=== PATIENT | female | born 1945 | race Caucasian/White ===

== ENCOUNTER 2016-09-30 10:08 | Inpatient (IN) | payer OTHER, MEDICARE ==
[~2016-09-30] VITALS: Ht 157.5 cm; Wt 88.0 kg
--- NOTE | 2016-10-01 10:21 | MH ---
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 ADMISSION HISTORY AND PHYSICAL This pleasant 71-year female is being admitted today for revision of a left total knee arthroplasty for loosening. OTHER PAST HISTORY 1. The patient had a left knee done 17 years ago. 2. The patient has a history of breast cancer in the past. 3. Hypertension CURRENT MEDICATIONS Include: 1. Losartan 2. Atorvastatin 3. Vitamins 4. Calcium SOCIAL HISTORY She does not smoke. She does drink some alcohol. PAST SURGICAL HISTORY Include: 1. Tonsillectomy and adenoidectomy 2. Total knee arthroplasties, left one done 17 years ago and Right one done 15 years ago. REVIEW OF SYSTEMS Noncontributory FAMILY HISTORY Noncontributory ALLERGIES SHE HAS AN ALLERGY TO CODEINE. PHYSICAL EXAMINATION We find a 71-year-old female well-developed, well-nourished oriented x3 complaining of pain in her left knee. VITAL SIGNS: Blood pressure 138/82, pulse 81 regular, respirations 20, temperature 98.2, pulse oximetry 96% on room air. HEENT: Eyes PERRL, EOMI. Ears, nose, mouth clear. NECK: Supple. LUNGS: Clear. HEART: Regular rate. ABDOMEN: Soft. Positive bowel sounds, nontender. EXTREMITIES: Reveals the left knee be tender with 3+ varus-valgus instability. She is neurovascularly to her toes. IMPRESSION At this time, failed left total knee arthroplasty. PLAN Revision left total knee arthroplasty today. The patient given a prescription for postoperative pain, anticoagulation control in the office and plans on going home after surgery. MD NTAHAN Gonzalez/ELIO /10:06 AM /10:15 AM
[2016-10-01] MEDS ORDERED: VITA100L BUCCAL (13:44)
[2016-10-01] MEDS ORDERED: CHOL5000 PO (13:44)
[2016-10-01] MEDS ORDERED: ASPI325T PO (13:44)
[2016-10-01] MEDS ORDERED: LOSA100T2 PO (13:44)
[2016-10-01] MEDS ORDERED: ACET-703 PO (13:44)
[2016-10-01] MEDS ORDERED: ATOR40TA16 PO (13:44)
[2016-10-01] MEDS ORDERED: CALCTAB33 PO (13:44)
[2016-10-02] MEDS ORDERED: SODIUM CHLORID 0.9% 500 ML IV SCH (06:15)
[2016-10-02] MEDS ORDERED: INSULIN HUMAN REGULAR 1,000 UNITS/10 ML VIAL SQ PRN (06:15)
[2016-10-02] MEDS ORDERED: LACTATED RINGER'S 1000 ML IV SCH (06:15)
[2016-10-02] MEDS ORDERED: METOPROLOL TARTRATE 25 MG TAB PO PRN (06:15)
[2016-10-02 06:36] VITALS: BP 147/71; PULSE 94; RESP 18; TEMP 98; O2SAT 98
[2016-10-02] MEDS ORDERED: ceFAZolin 2 GM PREMIX 50 ML ONE (06:51)
[2016-10-02] MEDS ORDERED: VANCOMYCIN HCL 1000 MG VIAL ONE (06:51)
[2016-10-02] MEDS ORDERED: MIDAZOLAM HCL 2 MG/2 ML VIAL ONE (07:10)
[2016-10-02] MEDS ORDERED: APREPITANT 40 MG CAP ONE (07:10)
[2016-10-02] MEDS ORDERED: FAMOTIDINE 20 MG/2 ML VIAL ONE (07:10)
[2016-10-02] MEDS ORDERED: CHLORHEXIDINE GLUCONATE 4% SOLN 120 ML BTL TOP SCH (08:00)
[2016-10-02] MEDS ORDERED: TRANEXAMIC ACID INJ 710 MG in SODIUM CHLORIDE 0.9% INJ 100 ML IV SCH ×2 (08:00→11:00)
[2016-10-02] MEDS ORDERED: BUPIVACAINE HCL PF 0.5% 30 ML VIAL NB ONE (08:07)
[2016-10-02] MEDS ORDERED: DEXAMETHASONE SOD PHOS PF 10 MG/ML VIAL IV ONE (08:07)
[2016-10-02] MEDS ORDERED: TRANEXAMIC ACID INJ 0 MG in SODIUM CHLORIDE 0.9% INJ 100 ML IV SCH (08:30)
[2016-10-02] MEDS ORDERED: diphenhydrAMINE HCL 50 MG/ML VIAL IV PRN (08:30)
[2016-10-02] MEDS ORDERED: ACETAMINOPHEN 325 MG TAB PO PRN (08:30)
[2016-10-02] MEDS ORDERED: oxyCODONE/ACETAMINOPHEN 5 MG/325 MG TAB PO PRN (08:30)
[2016-10-02] MEDS ORDERED: NALOXONE HCL 0.4 MG/ML AMP IV PRN (08:30)
[2016-10-02] MEDS ORDERED: ONDANSETRON HCL 4 MG/2 ML VIAL IVP PRN (08:30)
[2016-10-02] MEDS ORDERED: SODIUM CHLORIDE 0.9% FLUSH 5 ML FLUSH IVF PRN (08:30)
[2016-10-02] MEDS ORDERED: TEMAZEPAM 15 MG CAP PO PRN (08:30)
[2016-10-02] MEDS ORDERED: ceFAZolin INJ 1,000 MG VIAL TOP ONE (08:49)
[2016-10-02] MEDS: CYANOCOBALAMIN 100 MCG TAB PO SCH (09:00)
[2016-10-02] MEDS: SODIUM CHLORIDE 0.9% FLUSH 5 ML FLUSH IVF SCH ×2 (09:00→20:26)
[2016-10-02] MEDS: LOSARTAN 50 MG TAB PO SCH (09:00)
[2016-10-02] MEDS: CHOLECALCIFEROL (VIT D3) 5000 UNIT CAP PO SCH (09:00)
[2016-10-02] MEDS ORDERED: NON-FORMULARY DRUG (Losartan-Hydrochlorothiazide 1 TAB) PO SCH (09:00)
[2016-10-02] MEDS ORDERED: MORPHINE SULFATE 30 MG/30 ML PCA IV SCH (09:00)
[2016-10-02] MEDS: HYDROCHLOROTHIAZIDE 25 MG TAB PO SCH (09:00)
[2016-10-02] MEDS: CALCIUM/VITAMIN D 250 MG/125 U TAB PO SCH (09:00)
[2016-10-02] MEDS: TOBRAMYCIN SULFATE 1200 MG VIAL ONE ×3 (09:09→09:28)
[2016-10-02] MEDS ORDERED: TOBRAMYCIN SULFATE 1200 MG VIAL OTHER ONE (09:28)
[2016-10-02] MEDS ORDERED: fentaNYL CITRATE 250 MCG/5 ML AMP ONE (10:51)
[2016-10-02] MEDS ORDERED: DO NOT ADM ANY ANTICOAGULANT DRUGS XX PRN (11:00)
[2016-10-02] MEDS ORDERED: Post-op Orders (for Pharmacy) MISC XX ONE (11:00)
--- NOTE | 2016-10-02 11:19 | HHI.FF ---
Face to Face Verification Diagnosis: (1) Status post revision of total replacement of left knee Physical Therapy Gait training Knee: Total knee, Protocol: Left, Full weight bearing Canvas Knee Splint: When in bed & 2 pillows btw thighs Nursing RN: 3 days/week x 2 weeks Nursing: Danielle teaching, Dressing changes Dressing Changes: Daily dressing change, 4x4s, Gauze, Paper tape I have seen patient Gela Porter on 10/02/16. My clinical findings support the need for the requested home health care services because: Limited ability to care for self High risk of falls I certify that my clinical findings support that this patient is homebound because: Unsteady gait/balance Glory Carlin MD Oct 02, 2016 11:19
[2016-10-02] MEDS ORDERED: WALKER WHEELS/F1 MIS (11:21)
[2016-10-02] MEDS ORDERED: MISC-163 (11:21)
[2016-10-02] MEDS ORDERED: CPMMACHINE (11:21)
[2016-10-02] MEDS: LACTATED RINGER'S 1000 ML INJ 1,000 ML IV SCH ×2 (11:30→21:30)
--- NOTE | 2016-10-02 11:44 | RADRPT ---
EXAM DATE/TIME: 10/02/2016 11:04 [facility] COMPARISON: No previous studies available for comparison. INDICATIONS : Post op left knee replacement. MEDICAL HISTORY : None. SURGICAL HISTORY : None. ENCOUNTER: Initial ACUITY: 1 day PAIN SCORE: Non-responsive. LOCATION: Left knee. FINDINGS: AP and lateral views of the left knee demonstrate changes consistent with recent total knee arthropla sty with metallic hardware in place in the distal femur and proximal tibia. There is a radiolucent pa tellar component. There is soft tissue gas present, as expected. CONCLUSION: Expected findings are present following left total knee arthroplasty. Geronimo Ashley MD on October 02, 2016 at 11:42 Board Certified Radiologist. This report was verified electronically.
[2016-10-02] MEDS ORDERED: SODIUM CHLOR 0.9% 250 ML INJ 250 ML IV ONE (12:00)
[2016-10-02] MEDS ORDERED: ePHEDrine/NS 25 MG/5 ML SYR IV ONE (12:00)
[2016-10-02] MEDS ORDERED: ONDANSETRON HCL 4 MG/2 ML VIAL IV PUSH ONE (12:00)
[2016-10-02] MEDS ORDERED: LACTATED RINGER'S 1000 ML INJ 1,000 ML IV ONE (12:00)
[2016-10-02] MEDS ORDERED: PROPOFOL 200 MG/20 ML AMP IV ONE ×2 (12:00→13:08)
[2016-10-02 12:30] VITALS: BP 138/74; PULSE 92; RESP 17; TEMP 95.4; O2SAT 94
[2016-10-02] MEDS: PCA - TOTAL MG MORPHINE DELIVERED PER SHIFT SCH ×2 (14:00→20:26)
[2016-10-02 16:00] VITALS: BP 122/70; PULSE 81; RESP 16; TEMP 97.5; O2SAT 98
--- NOTE | 2016-10-02 16:11 | EKG ---
Date Performed: 10/02/2016 Time Performed: 06:37:30 PTAGE: 71 years EKG: Sinus rhythm POSSIBLE LEFT ATRIAL ENLARGEMENT POSSIBLE RIGHT VENTRICULAR CONDUCTION DELAY BORDERLINE ECG NO PREVIOUS TRACING DOCTOR: Archie Redd Interpretating Date/Time 10/02/2016 16:10:09
[2016-10-02 16:20] VITALS: O2SAT 98
[2016-10-02 20:00] VITALS: BP 128/65; PULSE 88; RESP 16; TEMP 96.4; O2SAT 99
[2016-10-02 20:17] VITALS: O2SAT 97
[2016-10-02] MEDS: ATORVASTATIN 40 MG TAB PO SCH (20:26)
[2016-10-03] VITALS (7 sets, daily range): BP systolic 111–158; BP diastolic 58–86; PULSE 77–81; RESP 16–17; TEMP 95.6–96.6; O2SAT 95–100
[2016-10-03] MEDS: PCA - TOTAL MG MORPHINE DELIVERED PER SHIFT SCH (05:02)
[2016-10-03 05:44] LABS: HEMATOCRIT 34.2 % (35.0-46.0); REVIEW FLAG FINAL
[2016-10-03] MEDS: SODIUM CHLORIDE 0.9% FLUSH 5 ML FLUSH IVF SCH ×2 (09:00→19:38)
[2016-10-03] MEDS: CHOLECALCIFEROL (VIT D3) 5000 UNIT CAP PO SCH (09:00)
--- NOTE | 2016-10-03 09:11 | PD.ORT.PN ---
Subjective Subjective Remarks pt fairly comfortable. No complaints today. Objective Vitals Vital Signs Date Time Temp Pulse Resp B/P Pulse Ox O2 Delivery O2 Flow Rate FiO2 10/03/16 05:02 16 10/03/16 04:00 96.6 77 16 123/70 100 10/03/16 00:00 96.5 78 16 122/66 97 10/02/16 20:26 16 10/02/16 20:17 97 10/02/16 20:00 96.4 88 16 128/65 99 10/02/16 16:20 98 21 10/02/16 16:00 97.5 81 16 122/70 98 10/02/16 14:00 16 10/02/16 12:30 95.4 92 17 138/74 94 10/02/16 11:45 88 18 131/71 99 Room Air 10/02/16 11:32 16 10/02/16 11:30 80 18 116/67 99 Room Air 10/02/16 11:15 85 18 124/69 98 Room Air 10/02/16 11:00 91 18 109/59 98 Room Air 10/02/16 10:44 98.2 93 18 100/50 98 Nasal Cannula 3 I/O 10/02/16 10/02/16 10/02/16 10/03/16 10/03/16 10/03/16 07:00 15:00 23:00 07:00 15:00 23:00 Intake Total 1840 ml 240 ml 240 ml Output Total 100 ml Balance 1740 ml 240 ml 240 ml Intake Oral 390 ml 240 ml 240 ml IV Total 100 ml Other 1350 ml Output Urine Total 0 ml Estimated Blood Loss 100 ml Other 0 ml # Voids 1 0 1 1 # Bowel Movements 0 0 0 Result Diagram: 10/03/16 0525 Objective Remarks Dressing dry and intact. Sitting up in chair. No calf tenderness. Assessment & Plan Ortho Post Op Day #: 1 Problem List: Assessment and Plan Cont OOB with PT and daily wound care. 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 Home tomorrow if comfortable and afebrile. Glory Carlin MD Oct 03, 2016 09:11
[2016-10-03] MEDS: LACTATED RINGER'S 1000 ML INJ 1,000 ML IV SCH ×2 (10:00→22:30)
[2016-10-03] MEDS: CALCIUM/VITAMIN D 250 MG/125 U TAB PO SCH (10:09)
[2016-10-03] MEDS: oxyCODONE/ACETAMINOPHEN 5 MG/325 MG TAB PO PRN ×4 (10:09→22:01)
[2016-10-03] MEDS: HYDROCHLOROTHIAZIDE 25 MG TAB PO SCH (10:10)
[2016-10-03] MEDS: CYANOCOBALAMIN 100 MCG TAB PO SCH (10:10)
[2016-10-03] MEDS: LOSARTAN 50 MG TAB PO SCH (10:10)
[2016-10-03] MEDS: ENOXAPARIN SODIUM 30 MG/0.3 ML SYRINGE SQ SCH ×2 (10:11→22:01)
[2016-10-03] MEDS: MULTIVITAMINS/MINERALS THERAPEUTIC TAB PO SCH (19:37)
[2016-10-03] MEDS: ATORVASTATIN 40 MG TAB PO SCH (19:37)
[2016-10-03] MEDS: DOCUSATE SODIUM 100 MG CAP PO SCH (19:37)
[2016-10-03] MEDS: MAGNESIUM HYDROXIDE SUSP 30 ML CUP PO PRN (22:01)
[2016-10-03] MEDS ORDERED: MORPHINE SULFATE 4 MG/ML INJ IV PRN (23:45)
[2016-10-04 00:02] VITALS: BP 140/71; PULSE 81; RESP 17; TEMP 96.7; O2SAT 99
[2016-10-04] MEDS: oxyCODONE/ACETAMINOPHEN 5 MG/325 MG TAB PO PRN ×3 (06:08→12:51)
[2016-10-04 06:38] LABS: HEMATOCRIT 33.5 % (35.0-46.0); REVIEW FLAG FINAL
[2016-10-04 08:00] VITALS: BP 127/66; PULSE 95; RESP 24; TEMP 96.8; O2SAT 96
[2016-10-04] MEDS ORDERED: POLYETHYLENE GLYCOL 17 GM PKG PO SCH (09:00)
[2016-10-04] MEDS: CHOLECALCIFEROL (VIT D3) 5000 UNIT CAP PO SCH (09:00)
[2016-10-04] MEDS: LOSARTAN 50 MG TAB PO SCH (09:03)
[2016-10-04] MEDS: MAGNESIUM HYDROXIDE SUSP 30 ML CUP PO PRN (09:03)
[2016-10-04] MEDS: ENOXAPARIN SODIUM 30 MG/0.3 ML SYRINGE SQ SCH (09:03)
[2016-10-04] MEDS: MULTIVITAMINS/MINERALS THERAPEUTIC TAB PO SCH (09:04)
[2016-10-04] MEDS: CALCIUM/VITAMIN D 250 MG/125 U TAB PO SCH (09:04)
[2016-10-04] MEDS: DOCUSATE SODIUM 100 MG CAP PO SCH (09:04)
[2016-10-04] MEDS: CYANOCOBALAMIN 100 MCG TAB PO SCH (09:04)
[2016-10-04] MEDS: HYDROCHLOROTHIAZIDE 25 MG TAB PO SCH (09:04)
[2016-10-04] MEDS: SODIUM CHLORIDE 0.9% FLUSH 5 ML FLUSH IVF SCH (09:06)
--- NOTE | 2016-10-04 09:32 | PD.ORT.PN ---
Subjective Subjective Remarks pt fairly comfortable. No complaints today. She had pain yesterday after class. Objective Vitals Vital Signs Date Time Temp Pulse Resp B/P Pulse Ox O2 Delivery O2 Flow Rate FiO2 10/04/16 08:00 96.8 95 24 127/66 96 10/04/16 00:02 96.7 81 17 140/71 99 10/03/16 20:00 95.9 79 17 158/86 97 10/03/16 18:35 96 21 10/03/16 16:00 95.6 77 17 117/58 96 10/03/16 11:19 96.5 78 16 111/58 95 I/O 10/03/16 10/03/16 10/03/16 10/04/16 10/04/16 10/04/16 07:00 15:00 23:00 07:00 15:00 23:00 Intake Total 240 ml 1200 ml 720 ml 360 ml Balance 240 ml 1200 ml 720 ml 360 ml Intake Oral 240 ml 1200 ml 720 ml 360 ml # Voids 1 0 2 2 # Bowel Movements 0 0 0 Result Diagram: 10/04/16 0532 Objective Remarks Dressing dry and intact. Sitting up in chair. No calf tenderness. Assessment & Plan Ortho Post Op Day #: 2 Problem List: Assessment and Plan Cont OOB with PT and daily wound care. Home today. Glory Carlin MD Oct 04, 2016 09:32
--- NOTE | 2016-10-04 09:36 | HHI.DS ---
Discharge Summary Admission Date Oct 02, 2016 at 05:50 Discharge Date: Oct 04, 2016 Admitting Diagnosis failed left total knee arthroplasty Diagnosis: (1) Status post revision of total replacement of left knee Diagnosis: Principal Brief History This is a 71 year old female patient CBC/BMP: 10/04/16 0532 Significant Findings Laboratory Tests Test 10/03/16 10/04/16 05:25 05:32 Hematocrit 34.2 % 33.5 % (35.0-46.0) (35.0-46.0) PE at Discharge Dressing dry and intact. Sitting up in chair. No calf tenderness. Hospital Course This patient was admitted on 10/02/16 with a failed left total knee arthroplasty. On day of admission the patient underwent a revision total knee arthroplasty including the tibial insert and the patella. Patient was then started on a round of prophylactic antibiotics and 23 hours later started on anticoagulation therapy. She continued to improve with physical therapy out of bed CPM machine and daily wound care. She progressed well with therapy and was tolerating by mouth pain meds by postoperative day #1. She was discharged on the second postoperative day ambulating well with her walker. She was discharged with instructions for home healthcare physical therapy daily wound care and anticoagulation therapy. She has a follow-up scheduled in the office as well. Pt Condition on Discharge: Good Discharge Disposition: Disch w/ Home Health Serv Discharge Instructions Diet Instructions: As Tolerated, No Restrictions Activities You Can Perform: Full Weight Bearing, Shower Only-No Bath Activities to Avoid: Bathing, Driving Glory Carlin MD Oct 04, 2016 09:36
[2016-10-04] MEDS ORDERED: BACITRACIN OINT 0.9 GM PKT TOP PRN (10:15)
[2016-10-04 10:58] VITALS: O2SAT 95
--- NOTE | 2016-10-08 00:04 | MP ---
cc: Parker TURNER. DATE OF SURGERY: 10/02/2016 PREOPERATIVE DIAGNOSIS: Failed left total knee arthroplasty. POSTOPERATIVE DIAGNOSIS Failed left total knee arthroplasty. SURGERY PERFORM Left total knee revision arthroplasty including the tibial insert and the patella, left knee. SURGEON Dr. Turner PROBATE CLERK: ELICEO Rehman Medical student: Rehana Butterfiled, third year, [employer]. ANESTHESIA: Spinal and block. PROCEDURE: Patient brought to the operating room, placed on the operating table in supine position. After successful induction of spinal anesthesia, the patient's left knee, thigh and leg were prepped and draped in the usual manner. Tourniquet inflated left upper thigh and sent to 300 mmHg pressure after exsanguination of the left lower extremity. Anterior medial parapatellar incision was then made through the old incision 8 inches in length, carried down through the subcutaneous tissue through the medial retinaculum to expose the knee joint. Serous fluid was removed, sent to the lab for STAT Gram stain, culture and sensitivity. Gram stain revealing few white cells, no bacteria seen, and the knee was then debrided of metallosis and few synovium, and the fragments of the patella plastic and the tibial insert were noted all around the knee joint and this was debrided. The remains of the patella was then resected using the oscillating saw down through normal bone and a size 31, three peg patella was then used by using the drill for the three peg holes and a trial 31 patella inserted, found to tract smoothly with no instability. The knee was then flexed and the remains of the tibial insert removed. Attempts were made to loosen the femoral metal and femoral tibial components and these were found to be quite stable and no loosening noted and these were left. The wound was then irrigated copiously and debrided of nonviable tissue. A new 31 millimeter patella was then cemented into place with one batch of antibiotic infused cobalt blue cement. When the cement hardened, the tourniquet was deflated. Tourniquet time less than one hour, at 300 mmHg pressure. Meticulous hemostasis achieved. A size 12 new tibial insert was then selected, found to tract smoothly after trial. The actual component was then inserted into place and clipped into place with the clip. Full range of motion of the knee was then appreciated with no instability. The wound was then irrigated copiously with antibiotic solution and the deep fascia approximated with running #2 Quill. The subcutaneous tissue was approximated using interrupted running 2-0 and 3-0 Monocryl suture. Steri-Strips, sterile dressing, knee immobilizer applied. No drain utilized. ESTIMATED BLOOD LOSS: 100 cc. Sponge and suture count correct. The patient tolerated the procedure well and left the operating room in satisfactory condition. J. MD NATHAN Beltrán/HENNY /11:16 AM /11:52 PM
== END 2016-10-04 12:57 | disposition home health service (06) | DRG 465 ==
LOC: HSDI 10-02 05:50 → N06B 10-02 12:33
PROVIDERS: ADMIT Surgery; ATTEND Surgery
PROC: 0SPD09Z Removal of Liner from Left Knee Joint, Open Approach (ICD-10-PCS; 2016-10-02)
PROC: 0SUW09Z Supplement Left Knee Joint, Tibial Surface with Liner, Open Approach (ICD-10-PCS; 2016-10-02)
PROC: 0SUD09C Supplement Left Knee Joint with Liner, Patellar Surface, Open Approach (ICD-10-PCS; 2016-10-02)
PROC: 0SPD0JC Removal of Synthetic Substitute from Left Knee Joint, Patellar Surface, Open Approach (ICD-10-PCS; principal; 2016-10-02 08:03)
DX: T84.093A Other mechanical complication of internal left knee prosthesis, initial encounter (principal); I10 Essential (primary) hypertension; Y79.2 Prosthetic and other implants, materials and accessory orthopedic devices associated with adverse incidents; Z85.3 Personal history of malignant neoplasm of breast
CPT/HCPCS: 73560; 85014; 85018; 86850; 86900; 86901; 87015; 87070; 87102; 87116; 87205; 87206; 93005; 94150; C1776; J0690; J1100; J1650; J2250; J2270; J2405; J3010; J3260; J3370; J7050; J7120; J8501; L1830